=== PATIENT | female | born 1950 | race Caucasian/White ===

== ENCOUNTER → 2018-03-25 | Outpatient (CLI) | payer OTHER | END | disposition home or self-care (01) | LOC: PCVCCLINIC 09:53 | DX: Z01.818 Encounter for other preprocedural examination (principal); E78.00 Pure hypercholesterolemia, unspecified; I10 Essential (primary) hypertension; K52.9 Noninfective gastroenteritis and colitis, unspecified; C18.9 Malignant neoplasm of colon, unspecified; R68.89 Other general symptoms and signs; I70.0 Atherosclerosis of aorta; E78.1 Pure hyperglyceridemia; Z82.49 Family history of ischemic heart disease and other diseases of the circulatory system | CPT/HCPCS: 80061; 93005; G0463 ==

== ENCOUNTER → 2018-04-03 | Outpatient (CLI) | payer OTHER ==
[~2018-04-03] MED LIST: REGADENOSON 0.4 MG/5 ML DISP.SYRIN. IV
== END | disposition home or self-care (01) ==
LOC: PCVCIMAG 12:33
DX: Z01.818 Encounter for other preprocedural examination (principal); I70.0 Atherosclerosis of aorta; I07.1 Rheumatic tricuspid insufficiency
CPT/HCPCS: 93306; J2785

== ENCOUNTER → 2019-07-10 | Outpatient (CLI) | payer OTHER | END | disposition home or self-care (01) | LOC: PCVCCLINIC 14:00 | PROVIDERS: ATTEND Internal Medicine Cardiovascular Disease | DX: I10 Essential (primary) hypertension (principal); E78.00 Pure hypercholesterolemia, unspecified; C18.2 Malignant neoplasm of ascending colon; Z82.49 Family history of ischemic heart disease and other diseases of the circulatory system; Z87.891 Personal history of nicotine dependence; Z79.899 Other long term (current) drug therapy | CPT/HCPCS: 93005; G0463 ==